=== PATIENT | male | born 1970 | race Caucasian/White ===

== ENCOUNTER 2017-01-23 21:53 | Emergency (ER) | payer OTHER ==
[~2017-01-23] VITALS: Ht 175.3 cm; Wt 84.0 kg
[2017-01-23 21:56] VITALS: TEMP 36.8; Ht 175.3 cm; Wt 84.0 kg
[2017-01-23] MEDS ORDERED: KETOROLAC TROMETHAMINE 30 MG/ML VIAL IV STA (22:23)
[2017-01-23] MEDS ORDERED: SODIUM CHLORIDE 0.9% 1000ML 1,000 ML IV STA (22:23)
[2017-01-23 23:02] LABS: BASO % 0.1 %; BASO ABS # 0.01 K/uL (0-0.2); COMPLETE YES; EOS % 0.2 %; HEMATOCRIT 43.6 % (42-52); IG% 0.3 %; LYMPH % 11.1 %; LYMPH ABS # 1.41 K/uL (1.2-3.4); MEAN CELL VOLUME 91.8 fL (80-100); MEAN CORPUSCULAR HEMOGLOBIN 31.6 pg (25-34); MEAN CORPUSCULAR HGB CONC 34.4 g/dl (32-36); MEAN PLATELET VOLUME 9.8 fL (7.4-10.4); MONO % 5.3 %; PLATELET COUNT 241 K/uL (130-400); RED BLOOD COUNT 4.75 M/uL (4.7-6.1)
[2017-01-23 23:12] LABS: MANUAL MICROSCOPIC REQUIRED? NO; REVIEW REQ? NO; URINE APPEARANCE CLOUDY (CLEAR); URINE BILIRUBIN NEG (NEG); URINE COLOR YELLOW; URINE NITRITE POS (NEG); URINE PH 6.5 (4.5-7.5); URINE SPECIFIC GRAVITY 1.016 (1.000-1.030); UROBILINOGEN NEG (NEG); ZZUR CULT IF INDIC CLEAN CATCH YES
[2017-01-23 23:18] LABS: BUN/CREATININE RATIO 10.6 (10-20); CALCIUM 9.4 mg/dl (8.5-10.1); POTASSIUM 3.9 mmol/L (3.5-5.1)
[2017-01-23] MEDS ORDERED: CEFTRIAXONE SOD INJ 1 GM ADDVIAL IV STA (23:21)
[2017-01-24] MEDS ORDERED: SULFAMETHOXAZOLE/TRIMETHOPRIM DS 800/160MG TAB PO STA (00:14)
[2017-01-24] MEDS ORDERED: TAMSULOSIN HCL 0.4 MG CAP PO ONE (00:15)
--- NOTE | 2017-01-24 00:18 | EMERGENCY ROOM VISIT NOTE ---
History First contact with patient: 22:09 Chief Complaint: URINARY SYMPTOMS Stated Complaint: SEVERE ABD PAIN Nursing Triage Summary: Pt. reports onset of left back and left lower abdominal pain around 3pm today. States he just finished antibiotics for a UTI. History of Present Illness The patient is a 46 year old male who presents to the Emergency Room with complaints of left flank pain. The patient states that he has had pain in the left back radiating into the left lower abdomen which started this afternoon. He rates the discomfort a 9/10. He has been nauseous, but has had no vomiting. He has had cloudy and foul-smelling urine for the past 10 days and states that he was recently placed on Macrobid by the assisted medical staff for this with no relief. He denies any history of urinary problems or kidney stones. He finished the antibiotics 2-3 days ago. He denies any fevers/chills. Review of Systems A complete 10 point review of systems was reviewed with the patient with pertinent positives and negatives as per history of present illness. All else were negative. Social History Smoking Status: Never Smoker Current/Historical Medications Scheduled Aspirin (Aspirin Ec), 81 MG PO DAILY Atorvastatin (Lipitor), 20 MG PO DAILY Brimonidine Tartrate (Alphagan P Oph), 1 DROP OPL BID Insulin Human Regular (Humulin R), Unknown Dose SC BID Insulin Isophan/Regular (Humulin 70/30), 26 UNITS SC BID Latanoprost (Xalatan 0.005% Oph Angela), 1 DROPS OPL QAM Lisinopril (Lisinopril), 2.5 MG PO DAILY Physical Exam Vital Signs Date Time Temp Pulse Resp B/P (MAP) Pulse Ox O2 Delivery O2 Flow Rate FiO2 01/24/17 00:40 79 17 103/69 94 01/24/17 00:34 79 17 103/69 94 Room Air 01/23/17 22:35 84 17 133/73 94 Room Air 01/23/17 21:56 36.8 97 18 127/74 96 Room Air Physical Exam VITALS: Vitals are noted on the nurse's note and reviewed by myself. Vital signs stable. Afebrile. GENERAL: This is a 46-year-old male, in no acute distress, nondiaphoretic, well- developed well-nourished. SKIN: The skin was without rashes. EYES: Pupils equal round and reactive to light and accommodation. MOUTH: Mucous membranes moist. NECK: Supple without nuchal rigidity. HEART: Regular rate and rhythm without murmurs gallops or rubs. LUNGS: Clear to auscultation bilaterally without wheezes, rales or rhonchi. ABDOMEN: Positive bowel sounds x 4. Soft, mild tenderness over the left lower quadrant. MUSCULOSKELETAL: Left CVA tenderness. NEURO: Patient was alert and oriented to person place and time. Medical Decision & Procedures ER Provider Diagnostic Interpretation: CT ABDOMEN & PELVIS WITHOUT CONTRAST: 4 mm calculus at the very distal aspect of left ureter. Mild upstream dilatation of the collecting system. Left renal enlargement and perinephric stranding. These findings are likely all obstructed, but would correlate clinically to exclude any superimposed infection. Additional few scattered small/punctate nonobstructing renal calyceal calculi bilaterally. Normal appendix. No colitis, diverticulitis or bowel obstruction. Stool throughout the colon. No free air, free fluid or other acute disease. Radiologist: Ralph Ponce MD Laboratory Results 01/23/17 22:35 Red Blood Count 4.75, Mean Corpuscular Volume 91.8, Mean Corpuscular Hemoglobin 31.6, Mean Corpuscular Hemoglobin Concent 34.4, Mean Platelet Volume 9.8, Neutrophils (%) (Auto) 83.0, Lymphocytes (%) (Auto) 11.1, Monocytes (%) (Auto) 5.3, Eosinophils (%) (Auto) 0.2, Basophils (%) (Auto) 0.1, Neutrophils # (Auto) 10.54, Lymphocytes # (Auto) 1.41, Monocytes # (Auto) 0.67, Eosinophils # (Auto) 0.03, Basophils # (Auto) 0.01 01/23/17 22:35 Test 01/23/17 22:35 White Blood Count 12.70 K/uL (4.8-10.8) Red Blood Count 4.75 M/uL (4.7-6.1) Hemoglobin 15.0 g/dL (14.0-18.0) Hematocrit 43.6 % (42-52) Mean Corpuscular Volume 91.8 fL (80-100) Mean Corpuscular Hemoglobin 31.6 pg (25-34) Mean Corpuscular Hemoglobin Concent 34.4 g/dl (32-36) Platelet Count 241 K/uL (130-400) Mean Platelet Volume 9.8 fL (7.4-10.4) Neutrophils (%) (Auto) 83.0 % Lymphocytes (%) (Auto) 11.1 % Monocytes (%) (Auto) 5.3 % Eosinophils (%) (Auto) 0.2 % Basophils (%) (Auto) 0.1 % Neutrophils # (Auto) 10.54 K/uL (1.4-6.5) Lymphocytes # (Auto) 1.41 K/uL (1.2-3.4) Monocytes # (Auto) 0.67 K/uL (0.11-0.59) Eosinophils # (Auto) 0.03 K/uL (0-0.5) Basophils # (Auto) 0.01 K/uL (0-0.2) RDW Standard Deviation 43.4 fL (36.4-46.3) RDW Coefficient of Variation 13.0 % (11.5-14.5) Immature Granulocyte % (Auto) 0.3 % Immature Granulocyte # (Auto) 0.04 K/uL (0.00-0.02) Urine Color YELLOW Urine Appearance CLOUDY (CLEAR) Urine pH 6.5 (4.5-7.5) Urine Specific [place] 1.016 (1.000-1.030) Urine Protein TRACE (NEG) Urine Glucose (UA) NEG (NEG) Urine Ketones TRACE (NEG) Urine Occult Blood 2+ (NEG) Urine Nitrite POS (NEG) Urine Bilirubin NEG (NEG) Urine Urobilinogen NEG (NEG) Urine Leukocyte Esterase MODERATE (NEG) Urine WBC (Auto) >30 /hpf (0-5) Urine RBC (Auto) >30 /hpf (0-4) Urine Hyaline Casts (Auto) 5-10 /lpf (0-5) Urine Epithelial Cells (Auto) 5-10 /lpf (0-5) Urine Bacteria (Auto) 4+ (NEG) Anion Gap 6.0 mmol/L (3-11) Est Creatinine Clear Calc Drug Dose 91.4 ml/min Estimated GFR () 103.4 Estimated GFR (Non- 89.2 BUN/Creatinine Ratio 10.6 (10-20) Calcium Level 9.4 mg/dl (8.5-10.1) Total Bilirubin 0.6 mg/dl (0.2-1) Aspartate Amino Transf (AST/SGOT) 16 U/L (15-37) Alanine Aminotransferase (ALT/SGPT) 21 U/L (12-78) Alkaline Phosphatase 115 U/L (45-117) Total Protein 7.5 gm/dl (6.4-8.2) Albumin 3.7 gm/dl (3.4-5.0) Globulin 3.8 gm/dl (2.5-4.0) Albumin/Globulin Ratio 1.0 (0.9-2) Lipase 78 U/L (73-393) Medications Administered Medications (Trade) Dose Ordered Sig/Anaya Route Start Time Stop Time Status Last Admin Dose Admin Sodium Chloride 1,000 ml @ 999 mls/hr Q1H1M STAT IV 01/23/17 22:23 01/23/17 23:23 DC 01/23/17 22:47 999 MLS/HR Ketorolac Tromethamine (Toradol Inj) 30 mg NOW STAT IV 01/23/17 22:23 01/23/17 22:27 DC 01/23/17 22:47 30 MG Ceftriaxone Sodium (Rocephin Inj) 1 gm NOW STAT IV 01/23/17 23:21 01/23/17 23:22 DC 01/23/17 23:42 1 GM Trimethoprim/ Sulfamethoxazole (Septra Ds 800/ 160MG Tab) 1 tab NOW STAT PO 01/24/17 00:14 01/24/17 00:15 DC 01/24/17 00:33 1 TAB Tamsulosin HCl (Flomax Cap) 0.4 mg NOW ONCE PO 01/24/17 00:15 01/24/17 00:16 DC 01/24/17 00:33 0.4 MG ED Course The patient was evaluated as above. Labs were drawn and IV access was obtained. Patient was medicated with a normal saline bolus and IV Toradol. CT scan of the abdomen and pelvis was performed and read by radiology as above. Patient was given 1 g Rocephin. Patient was reevaluated and findings were discussed. He was given initial doses of Bactrim and Flomax. He was given a urine strainer. Discharge instructions were reviewed with the patient. The patient verbalized understanding of my assessment and treatment plan and was discharged home in good condition. Medical Decision Differential diagnosis includes kidney stone, pyelonephritis, urinary tract infection, colitis, gastroenteritis, among others. The patient is a 46-year-old male who presents today complaining of left flank pain and urinary symptoms. Patient has had foul-smelling urine and cloudy urine for the past 10 days and was recently on Macrobid. The flank pain and vomiting just began earlier this evening. Labs revealed a mild leukocytosis. Urinalysis was suggestive of infection. CT scan did show a 4 mm stone in the distal left ureter. The patient is well-appearing and afebrile. There is no evidence of sepsis or pyelonephritis at this time. Patient does have an obstructing stone with urinary tract infection. He was given an initial dose of Rocephin and will be placed on Bactrim pending the urine culture. He was advised to take Flomax to help pass the stone. He will follow-up with his primary care provider at the assisted for further evaluation and treatment. He was advised to return immediately if he develops fevers, vomiting or other new/ concerning symptoms. The patient's case was reviewed with Dr. Nieto, ED attending physician, who agreed with my assessment and treatment plan. Based on the patient's presentation and work up, I feel the patient is stable for outpatient treatment. The patient was educated to return to the emergency department for any worsening of their current condition or new/concerning symptoms. He will follow up with his primary care provider. Medication Reconcilliation Current Medication List: was personally reviewed by me Blood Pressure Screening Patient's blood pressure: Normal blood pressure Impression Primary Impression: Ureteral calculus Additional Impression: Urinary tract infection Departure Information Dispostion Home / Self-Care Condition GOOD Referrals Mann [facility] (PCP) Patient Instructions My [facility] Additional Instructions Bactrim, twice daily for 10 days. Flomax, 0.4 mg once daily until the stone passes. Strain the urine until the stone passes. Follow-up with the primary care for rechecks daily if possible. For pain control, you can use the following [id number]-yku-yizdmus medicines (if >12 yo): - Regular strength (325mg/tab) Tylenol (acetaminophen) 2 tabs every 4-6 hours as needed. Do not exceed 12 tablets in a 24 hour period. Avoid taking more than 4 grams (4000 mg) of Tylenol per day. This includes any other sources of acetaminophen you may take on a regular basis. - Regular strength (200 mg/tab) Advil (ibuprofen) 1-2 tabs every 4-6 hours as needed. Do not exceed a dose of 3200 mg per day. Return to the emergency department immediately with a fever, vomiting, worsening pain, or any other new/concerning symptoms. Problem Qualifiers
[2017-01-24] MEDS ORDERED: ATOR-22 PO (00:26)
[2017-01-24] MEDS ORDERED: LATA0.5S OPL (00:26)
[2017-01-24] MEDS ORDERED: LSN25 PO (00:26)
[2017-01-24] MEDS ORDERED: INSU1INJ SC (00:26)
[2017-01-24] MEDS ORDERED: BRIM0.1S OPL (00:26)
[2017-01-24] MEDS ORDERED: INSHRIE SC (00:26)
[2017-01-24] MEDS ORDERED: ASPI81TA28 PO (00:26)
[2017-01-24 00:40] VITALS: BP 103/69; PULSE 79; O2SAT 94
--- NOTE | 2017-01-24 07:27 | DIAGNOSTIC IMAGING REPORT ---
ABD/PELVIS WITHOUT FOR STONE CLINICAL HISTORY: 46 years-old Male presenting with left flank pain, recent UTI. TECHNIQUE: Multidetector CT of the abdomen and pelvis was performed without the use of intravenous contrast. IV contrast: None. A dose lowering technique was used consistent with the principles of ALARA (as low as reasonably achievable). COMPARISON: None. CT DOSE (mGy.cm): The estimated cumulative dose is 789.27 mGy.cm. FINDINGS: Oriental Medicine Practitioner topogram: Unremarkable. Lung bases: Lung bases clear. Normal heart size. No pericardial or pleural effusion. Liver: Normal morphology. No liver lesion. Patent hepatic vasculature. Biliary: No gross biliary ductal dilatation allowing for noncontrast technique. Normal gallbladder. Pancreas: Normal noncontrast appearance. Spleen: Normal. Adrenal glands: Normal. Kidneys and ureters: Nonobstructing 3 mm calculus in the interpolar region of the right kidney with an additional punctate calculus at the lower pole and potentially at the upper pole as well. Multiple punctate nonobstructing calculi in the left kidney, the largest at the lower pole measuring 2 mm. Minimal left hydronephrosis. Left hydroureter. Obstructing 4 mm calculus in the distal left ureter immediately proximal to the left ureterovesical junction.. Bladder: Mild diffuse circumferential bladder wall thickening. Pelvic organs: Prostate and seminal vesicles normal. Calcification of the vas deferens suggests diabetes. Bowel: Moderate stool burden in the right and transverse colon. Normal appendix. No bowel obstruction. Fecal material in the distal small bowel suggest delayed transit. Peritoneal cavity: A ventriculoperitoneal catheter is noted. No fluid collection at its terminus in the left lower quadrant. Trace fluid noted. No free gas. Lymph nodes: No enlarged lymph nodes in the abdomen or pelvis. Vasculature: Suggestion of prominence of the hepatic artery, which is doubtful clinical significance. Atherosclerosis of the normal caliber aorta. Abdominal wall: No fluid tracks along the superficial portion of the ventriculoperitoneal shunt. Musculoskeletal: Focal degenerative changes at L2-3 with erosion of the endplates. IMPRESSION: 1. Obstructing 4 mm calculus at the distal left ureter. Left hydroureteronephrosis as above. 2. Bilateral nephrolithiasis. 3. Diffuse bladder wall thickening could suggest chronic bladder outlet obstruction versus cystitis. Correlate with urinalysis. 4. Erosive endplate changes at L2-3 are likely degenerative in etiology given the presence of other findings which suggest degenerative disc disease. Correlate clinically to exclude infectious symptoms. Electronically signed by: Jim Horne M.D. 01/24/2017 7:25 AM Dictated Date/Time: 01/24/2017 7:18 AM
== END 2017-01-24 00:43 | disposition home or self-care (01) ==
LOC: C.EDB 21:56 → C.EDC 01-24 00:43
DX: N20.1 Calculus of ureter (principal); N39.0 Urinary tract infection, site not specified; Z79.82 Long term (current) use of aspirin; Z79.4 Long term (current) use of insulin; Z79.899 Other long term (current) drug therapy